=== PATIENT | female | born 1970 | race Caucasian/White ===

== ENCOUNTER 2016-11-23 16:43 | Emergency (ER) | payer BC, OTHER ==
[~2016-11-23 16:43] MED LIST: /ESCI10TA; DICY10CA2; IBUP600T; SENN8.6T14; VICO5TAB; XANA1TAB2
[2016-11-23] MEDS ORDERED: ACETAMINOPHEN 325 MG TAB As Ordered ONE (17:18)
--- NOTE | 2016-11-23 18:58 | EDDOCDS ---
Nurse's Notes [facility] Name: Fara Harrington Age: 46 yrs Sex: Female : 1970 Arrival Date: 11/23/2016 Time: 16:43 Bed PR Private MD: Vinnie Daniel Diagnosis: Other sprain of right foot Presentation: 11/23 16:47 Presenting complaint: Patient states: Injured right foot today, fell earlier today, ck1 increasing pain as day went on. Adult Sepsis Screening: The patient does not have new or worsening altered mentation. Patient's respiratory rate is less than 22. Systolic blood pressure is greater than 100. Patient has a qSOFA score of 0- Negative Sepsis Screen. Suicide/Homicide risk assessment- the patient denies having any suicidal and/or homicidal ideations and does not present with any other emotional, behavioral or mental health complaints. Status: Patient is not a pharmacy services representative or dependent. Transition of care: patient was not received from another setting of care. 16:47 Acuity: ANN Level 4 ck1 16:47 Method Of Arrival: Wheelchair ck1 Triage Assessment: 16:50 General: Appears in no apparent distress, comfortable, Behavior is appropriate for age, ck1 cooperative. Pain: Location: right foot Pain currently is 5 out of 10 on a pain scale. HIV screening NA for this visit Offered previously. Derm: Skin is intact, is healthy with good turgor, Skin is pink, warm & dry. Musculoskeletal: Circulation, motion, and sensation intact Range of motion intact in all extremities. 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 none - PMHx: none; - PSHx: Hysterectomy; - Social history: Smoking status: Patient states former smoker of tobacco. No barriers to communication noted, The patient speaks fluent Serbian, Speaks appropriately for age. - Family history: Not pertinent. - : The pt / caregiver states he / she is not on anticoagulants. Home medication list is obtained from the patient. - Exposure Risk Screening:: None identified. Screenin:12 Screening information is obtained from the patient. Fall risk: No risks identified. lf1 Assistance ADL's: requires no assistance with activities of daily living. Abuse/DV Screen: The patient / caregiver reports he/she is: not in a situation that causes fear, pain or injury. Nutritional screening: No deficits noted. Advance Directives: Currently, there is no health care proxy. home support is adequate. Assessment: 17:12 Adult Sepsis Screening: The patient does not have new or worsening altered mentation. lf1 Patient's respiratory rate is less than 22. Systolic blood pressure is greater than 100. Patient has a qSOFA score of 0- Negative Sepsis Screen. General: Appears in no apparent distress, comfortable, Behavior is cooperative. Pain: Location: right foot Pain currently is 5 out of 10 on a pain scale. At worst was 7 out of 10 on a pain scale. Neurological: Level of Consciousness is awake, alert, Oriented to person, place, time. EENT: No deficits noted. Respiratory: Respiratory effort is even, unlabored. GI: Denies nausea, vomiting. Derm: Skin is normal. Musculoskeletal: Pain when walking. Injury Description: pt fell. Vital Signs: 16:45 BP 97 / 60; Pulse 86; Resp 18 S; Temp 96.5; Pulse Ox 98% on R/A; Weight 68.04 kg (R); gr2 Height 5 ft. 4 in. (162.56 cm) (R); Pain 5/10; 18:55 BP 104 / 63; Pulse 74; Resp 18; Temp 97.4(O); Pulse Ox 100% on R/A; Pain 2/10; mcp 16:45 Body Mass Index 25.75 (68.04 kg, 162.56 cm) gr2 Vitals: 16:45 Log In Time: November 23, 2016 at 16:45. gr2 ED Course: 16:44 Patient visited by Endy Downey. gr2 16:44 Vinnie Daniel is Private Physician. gr2 16:44 Patient moved to Waiting gr2 16:46 Patient visited by Endy Downey. gr2 16:46 Patient moved to Pre RCE gr2 16:49 Triage Initiated ck1 16:50 Patient moved to Triage 1 ck1 16:56 [facility] ck7 16:56 Karin Garcia MD is Attending Physician. ck7 16:56 Patient visited by Christiano Tomlin RPA-C. ck7 17:08 [facility] Payment Agreement was scanned into [employer] and attached to record. gb 17:14 Patient visited by Flavia Avalos,RN. lf1 17:20 Patient visited by Flavia Avalos,MINDY. lf1 17:24 Patient moved to TR2 lf1 17:54 Patient visited by Lay Hernández,RN. ck1 18:21 [facility] is Referral Physician. ck7 18:29 Patient moved to PR2 / 26 [facility] 18:30 Patient moved to TR2 [facility] 18:40 Patient moved to PR2 / 26 [facility] 18:55 No IV's were initiated during this patient's visit. No procedures done that require mcp assistance. Crutch training done. Ortho shoe applied to right foot. 18:57 The patient / caregiver is instructed regarding the plan of care and ED course. mcp Administered Medications: 17:20 Drug: Acetaminophen 650 mg [acetaminophen 325 mg tablet (2 tabs)] Route: PO; lf1 Order Results: There are currently no results for this order. Outcome: 18:21 Discharge ordered by Provider. ck7 18:56 Discharge Assessment: patient administered narcotics - no. The following High Risk [facility] Discharge criteria are identified: None. Discharged to home ambulatory, with crutches, with friend. Condition: stable. Discharge instructions given to patient, Instructed on discharge instructions, follow up and referral plans. medication usage, crutch walking, Demonstrated understanding of instructions, crutch walking, medications, Pt was receptive of discharge instructions/ teaching. Prescriptions given X 1. No special radiology studies were completed. Property sent home with patient. 18:57 Patient left the ED. [facility] Signatures: Ana Busch, RN RN [facility] Brisa Calix, Reg Reg Lay Hernández,RN RN ck1 Flavia Avalos,RN RN lf1 Christiano Tomlin, RPA-C RPA-Cck7 Endy Downey 2 [facility] Velasquez [facility]
--- NOTE | 2016-11-23 18:58 | EDDOCDS ---
Physician Documentation [facility] Name: Fara Harrington Age: 46 yrs Sex: Female : 1970 Arrival Date: 11/23/2016 Time: 16:43 Bed PR Private MD: Vinnie Daniel Disposition: 11/23/16 18:21 Discharged to Home/Self Care. Impression: Other sprain of right foot. - Condition is Stable. - Discharge Instructions: Foot Sprain. - Prescriptions for Ibuprofen 600 mg Oral Tablet - take 1 tablet by ORAL route every 6 hours As needed take with food; 30 tablet. - Medication Reconciliation, Local Pharmacy Hours form. - Follow up: [facility]; When: 2 - 3 days; Reason: Recheck today's complaints, Continuance of care. - Problem is new. - Symptoms have improved. - Notes: USE ICE, SPLINT, CRUTCHES AND MOTRIN FOR PAIN CONTROL. FOLLOW UP WITH [facility], RETURN TO THE ER IF THE SYMPTOMS WORSEN OR BECOME CONCERNING Historical: - Allergies: No known drug Allergies; - Home Meds: 1. none - PMHx: none; - PSHx: Hysterectomy; - Social history: Smoking status: Patient states former smoker of tobacco. No barriers to communication noted, The patient speaks fluent French, Speaks appropriately for age. - Family history: Not pertinent. - : The pt / caregiver states he / she is not on anticoagulants. Home medication list is obtained from the patient. - Exposure Risk Screening:: None identified. 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 4 in. (162.56 cm) (R); Pain 5/10; 18:55 BP 104 / 63; Pulse 74; Resp 18; Temp 97.4(O); Pulse Ox 100% on R/A; Pain 2/10; mcp 16:45 Body Mass Index 25.75 (68.04 kg, 162.56 cm) gr2 Procedures: 18:46 Fracture care/splinting: Splint applied to right foot using POST OP SHOE. applied by ck7 nurse. Examined by me, post splint application: neurovascular intact, 2+ distal pulses palpable, brisk capillary refill noted, Patient tolerated well. MDM: 17:04 Financial registration complete. 17:08 [facility] Payment Agreement was scanned into [employer] and attached to record. gb 17:16 Acetaminophen Tablet 650 mg PO once ordered. ck7 17:17 Foot, Complete Ordered. EDMS 18:21 Splint Affected Extremity ordered. ck7 18:21 Crutches ordered. ck7 Administered Medications: 17:20 Drug: Acetaminophen 650 mg [acetaminophen 325 mg tablet (2 tabs)] Route: PO; lf1 Signatures: Dispatcher [employer] EDMS Ana Busch, RN RN mcp Brisa Calix, Marek Reg Lay Hernández,RN RN ck1 Christiano Tomlin, RPA-C RPA-Cck7 Flavia Avalos RN lf1 The chart was reviewed and I authenticate all verbal orders and agree with the evaluation and treatment provided.Attachments: 17:08 [facility] Payment Agreement MTDD
--- NOTE | 2016-11-23 19:02 | REP ---
RIGHT FOOT SERIES COMPLETE: 11/23/2016. Clinical history: Pain, deformity, swelling. Findings: No prior study. The four views show the talus and calcaneus without fracture or focal lesion. Subtalar joints are intact. No heel spurs noted. Tarsal bones and their articulations are intact. The metatarsals and phalanges are without fracture or focal lesion. I see no radiopaque foreign body. No subluxation. There are minimal degenerative changes at some of the IP joints. Impression: 1. Minor degenerative changes of some of the IP joints without visible or displaced fracture, avulsion, subluxation or other acute finding. Signed by Eugene Burk MD 11/23/2016 08:30 P
--- NOTE | 2016-11-25 19:58 | EDDOCDS ---
Nurse's Notes [facility] Name: Fara Harrington Age: 46 yrs Sex: Female : 1970 Arrival Date: 11/23/2016 Time: 16:43 Bed PR Private MD: Vinnie Daniel Diagnosis: Other sprain of right foot Presentation: 11/23 16:47 Presenting complaint: Patient states: Injured right foot today, fell earlier today, ck1 increasing pain as day went on. Adult Sepsis Screening: The patient does not have new or worsening altered mentation. Patient's respiratory rate is less than 22. Systolic blood pressure is greater than 100. Patient has a qSOFA score of 0- Negative Sepsis Screen. Suicide/Homicide risk assessment- the patient denies having any suicidal and/or homicidal ideations and does not present with any other emotional, behavioral or mental health complaints. 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 Transition of care: patient was not received from another setting of care. 16:47 Acuity: ANN Level 4 ck1 16:47 Method Of Arrival: Wheelchair ck1 Triage Assessment: 16:50 General: Appears in no apparent distress, comfortable, Behavior is appropriate for age, ck1 cooperative. Pain: Location: right foot Pain currently is 5 out of 10 on a pain scale. HIV screening NA for this visit Offered previously. Derm: Skin is intact, is healthy with good turgor, Skin is pink, warm & dry. Musculoskeletal: Circulation, motion, and sensation intact Range of motion intact in all extremities. 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 none - PMHx: none; - PSHx: Hysterectomy; - Social history: Smoking status: Patient states former smoker of tobacco. No barriers to communication noted, The patient speaks fluent Ethiopian, Speaks appropriately for age. - Family history: Not pertinent. - : The pt / caregiver states he / she is not on anticoagulants. Home medication list is obtained from the patient. - Exposure Risk Screening:: None identified. Screenin:12 Screening information is obtained from the patient. Fall risk: No risks identified. lf1 Assistance ADL's: requires no assistance with activities of daily living. Abuse/DV Screen: The patient / caregiver reports he/she is: not in a situation that causes fear, pain or injury. Nutritional screening: No deficits noted. Advance Directives: Currently, there is no health care proxy. home support is adequate. Assessment: 17:12 Adult Sepsis Screening: The patient does not have new or worsening altered mentation. lf1 Patient's respiratory rate is less than 22. Systolic blood pressure is greater than 100. Patient has a qSOFA score of 0- Negative Sepsis Screen. General: Appears in no apparent distress, comfortable, Behavior is cooperative. Pain: Location: right foot Pain currently is 5 out of 10 on a pain scale. At worst was 7 out of 10 on a pain scale. Neurological: Level of Consciousness is awake, alert, Oriented to person, place, time. EENT: No deficits noted. Respiratory: Respiratory effort is even, unlabored. GI: Denies nausea, vomiting. Derm: Skin is normal. Musculoskeletal: Pain when walking. Injury Description: pt fell. Vital Signs: 16:45 BP 97 / 60; Pulse 86; Resp 18 S; Temp 96.5; Pulse Ox 98% on R/A; Weight 68.04 kg (R); gr2 Height 5 ft. 4 in. (162.56 cm) (R); Pain 5/10; 18:55 BP 104 / 63; Pulse 74; Resp 18; Temp 97.4(O); Pulse Ox 100% on R/A; Pain 2/10; mcp 16:45 Body Mass Index 25.75 (68.04 kg, 162.56 cm) gr2 Vitals: 16:45 Log In Time: November 23, 2016 at 16:45. gr2 ED Course: 16:44 Patient visited by Endy Downey. gr2 16:44 Vinnie Daniel is Private Physician. gr2 16:44 Patient moved to Waiting gr2 16:46 Patient visited by Endy Downey. gr2 16:46 Patient moved to Pre RCE gr2 16:49 Triage Initiated ck1 16:50 Patient moved to Triage 1 ck1 16:56 Christian[facility] Tomlin [facility]C [facility] ck7 16:56 Karin Gacria MD is Attending Physician. ck7 16:56 Patient visited by Christiano Tomlin RPA-C. ck7 17:08 [facility] Payment Agreement was scanned into [employer] and attached to record. gb 17:14 Patient visited by Flavia Avalos,MINDY. lf1 17:20 Patient visited by Flavia Avalos RN. lf1 17:24 Patient moved to TR2 lf1 17:54 Patient visited by Lay Hernández,MINDY. ck1 18:21 [facility] is Referral Physician. ck7 18:29 Patient moved to PR2 / 26 nb2 18:30 Patient moved to TR2 nb2 18:40 Patient moved to PR2 / 26 mcp 18:55 No IV's were initiated during this patient's visit. No procedures done that require mcp assistance. Crutch training done. Ortho shoe applied to right foot. 18:57 The patient / caregiver is instructed regarding the plan of care and ED course. mcp 19:21 Foot, Complete Returned. EDMS 11/24 19:01 T-Sheet-- Draft Copy was scanned into [employer] and attached to record. klr Administered Medications: 11/23 17:20 Drug: Acetaminophen 650 mg [acetaminophen 325 mg tablet (2 tabs)] Route: PO; lf1 Order Results: Radiology Order: Foot, Complete Test: Foot, Complete REASON FOR EXAMINATION: Deformity/Swelling; RIGHT FOOT SERIES COMPLETE: 11/23/2016.; ; Clinical history: Pain, deformity, swelling.; ; Findings: No prior study. The four views show the talus and calcaneus without; fracture or focal lesion. Subtalar joints are intact. No heel spurs noted.; Tarsal bones and their articulations are intact. The metatarsals and phalanges; are without fracture or focal lesion. I see no radiopaque foreign body. No; subluxation. There are minimal degenerative changes at some of the IP joints.; ; Impression:; ; 1. Minor degenerative changes of some of the IP joints without visible or; displaced fracture, avulsion, subluxation or other acute finding.; ; ; ; ; Signed by; Eugene Burk MD 11/23/2016 08:30 P; Outcome: 18:21 Discharge ordered by Provider. ck7 18:56 Discharge Assessment: patient administered narcotics - no. The following High Risk mcp Discharge criteria are identified: None. Discharged to home ambulatory, with crutches, with friend. Condition: stable. Discharge instructions given to patient, Instructed on discharge instructions, follow up and referral plans. medication usage, crutch walking, Demonstrated understanding of instructions, crutch walking, medications, Pt was receptive of discharge instructions/ teaching. Prescriptions given X 1. No special radiology studies were completed. Property sent home with patient. 18:57 Patient left the ED. [facility] Signatures: Dispatcher [employer] EDAna Edwards RN RN [facility] Brisa Calix, Reg Reg verna Hernández,LayRN RN [id number] Flavia AvalosRN RN lf1 Christiano Tomlin, RPA-C RPA-Cck7 Endy Downey gr2 Brigitte Gruber Nicole nb2 Chart Complete MTDD
--- NOTE | 2016-11-25 19:58 | EDDOCDS ---
Physician Documentation [facility] Name: Fara Harrington Age: 46 yrs Sex: Female : 1970 Arrival Date: 11/23/2016 Time: 16:43 Bed PR Private MD: Vinnie Daniel Disposition: 11/23/16 18:21 Discharged to Home/Self Care. Impression: Other sprain of right foot. - Condition is Stable. - Discharge Instructions: Foot Sprain. - Prescriptions for Ibuprofen 600 mg Oral Tablet - take 1 tablet by ORAL route every 6 hours As needed take with food; 30 tablet. - Medication Reconciliation, Local Pharmacy Hours form. - Follow up: [facility]; When: 2 - 3 days; Reason: Recheck today's complaints, Continuance of care. - Problem is new. - Symptoms have improved. - Notes: USE ICE, SPLINT, CRUTCHES AND MOTRIN FOR PAIN CONTROL. FOLLOW UP WITH [facility]TH[facility], RETURN TO THE ER IF THE SYMPTOMS WORSEN OR BECOME CONCERNING Historical: - Allergies: No known drug Allergies; - Home Meds: 1. none - PMHx: none; - PSHx: Hysterectomy; - Social history: Smoking status: Patient states former smoker of tobacco. No barriers to communication noted, The patient speaks fluent Hebrew, Speaks appropriately for age. - Family history: Not pertinent. - : The pt / caregiver states he / she is not on anticoagulants. Home medication list is obtained from the patient. - Exposure Risk Screening:: None identified. 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 4 in. (162.56 cm) (R); Pain 5/10; 18:55 BP 104 / 63; Pulse 74; Resp 18; Temp 97.4(O); Pulse Ox 100% on R/A; Pain 2/10; mcp 16:45 Body Mass Index 25.75 (68.04 kg, 162.56 cm) gr2 Procedures: 18:46 Fracture care/splinting: Splint applied to right foot using POST OP SHOE. applied by ck7 nurse. Examined by me, post splint application: neurovascular intact, 2+ distal pulses palpable, brisk capillary refill noted, Patient tolerated well. MDM: 17:04 Financial registration complete. 17:08 [facility] Payment Agreement was scanned into [employer] and attached to record. gb 17:16 Acetaminophen Tablet 650 mg PO once ordered. ck7 17:17 Foot, Complete Ordered. EDMS 18:21 Splint Affected Extremity ordered. ck7 18:21 Crutches ordered. ck7 11/24 19:01 T-Sheet-- Draft Copy was scanned into [employer] and attached to record. klr Administered Medications: 11/23 17:20 Drug: Acetaminophen 650 mg [acetaminophen 325 mg tablet (2 tabs)] Route: PO; lf1 Signatures: Dispatcher Med[employer] Ana Solomon, RN RN Brisa Becerra, Reg Reg Lay Jha RN RN ck1 Christiano Tomlin RPA-C [facility]ig[facility] Keith Lisa RN lf1 The chart was reviewed and I authenticate all verbal orders and agree with the evaluation and treatment provided.Attachments: 17:08 [facility] Payment Agreement gb 11/24 19:01 T-Sheet-- Draft Copy klr Chart Complete MTDD
--- NOTE | 2016-11-25 19:58 | EDDOCDS ---
Physician Documentation [facility] Name: Fara Harrington Age: 46 yrs Sex: Female : 1970 Arrival Date: 11/23/2016 Time: 16:43 Bed PR Private MD: Vinnie Daniel Disposition: 11/23/16 18:21 Discharged to Home/Self Care. Impression: Other sprain of right foot. - Condition is Stable. - Discharge Instructions: Foot Sprain. - Prescriptions for Ibuprofen 600 mg Oral Tablet - take 1 tablet by ORAL route every 6 hours As needed take with food; 30 tablet. - Medication Reconciliation, Local Pharmacy Hours form. - Follow up: [facility]; When: 2 - 3 days; Reason: Recheck today's complaints, Continuance of care. - Problem is new. - Symptoms have improved. - Notes: USE ICE, SPLINT, CRUTCHES AND MOTRIN FOR PAIN CONTROL. FOLLOW UP WITH [facility], RETURN TO THE ER IF THE SYMPTOMS WORSEN OR BECOME CONCERNING Historical: - Allergies: No known drug Allergies; - Home Meds: 1. none - PMHx: none; - PSHx: Hysterectomy; - Social history: Smoking status: Patient states former smoker of tobacco. No barriers to communication noted, The patient speaks fluent Khmer, Speaks appropriately for age. - Family history: Not pertinent. - : The pt / caregiver states he / she is not on anticoagulants. Home medication list is obtained from the patient. - Exposure Risk Screening:: None identified. 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 4 in. (162.56 cm) (R); Pain 5/10; 18:55 BP 104 / 63; Pulse 74; Resp 18; Temp 97.4(O); Pulse Ox 100% on R/A; Pain 2/10; mcp 16:45 Body Mass Index 25.75 (68.04 kg, 162.56 cm) gr2 Procedures: 18:46 Fracture care/splinting: Splint applied to right foot using POST OP SHOE. applied by ck7 nurse. Examined by me, post splint application: neurovascular intact, 2+ distal pulses palpable, brisk capillary refill noted, Patient tolerated well. MDM: 17:04 Financial registration complete. 17:08 [facility] Payment Agreement was scanned into [employer] and attached to record. gb 17:16 Acetaminophen Tablet 650 mg PO once ordered. ck7 17:17 Foot, Complete Ordered. EDMS 18:21 Splint Affected Extremity ordered. ck7 18:21 Crutches ordered. ck7 11/24 19:01 T-Sheet-- Draft Copy was scanned into [employer] and attached to record. klr Administered Medications: 11/23 17:20 Drug: Acetaminophen 650 mg [acetaminophen 325 mg tablet (2 tabs)] Route: PO; lf1 Signatures: Dispatcher [employer] Ana Solomon, RN RN Brisa Becerra, Reg Reg Lay Jha RN RN ck1 Christiano Tomlin RPA-C [facility]igitte Keith Lisa RN lf1 The chart was reviewed and I authenticate all verbal orders and agree with the evaluation and treatment provided.Attachments: 17:08 [facility] Payment Agreement gb 11/24 19:01 T-Sheet-- Draft Copy klr Chart Complete MTDD
== END 2016-11-23 18:57 | disposition home or self-care (01) ==
LOC: M ED 16:43
DX: S93.601A Unspecified sprain of right foot, initial encounter (principal); W19.XXXA Unspecified fall, initial encounter; Y92.89 Other specified places as the place of occurrence of the external cause; Y93.89 Activity, other specified; Y99.8 Other external cause status; Z87.891 Personal history of nicotine dependence